=== PATIENT | male | born 1930 | race Caucasian/White ===

== ENCOUNTER 2018-11-07 10:48 | Day surgery (SDC) | payer MEDICARE, BC ==
[2018-11-07] MEDS: Lactated Ringers 1,000 ML IV SCH (11:48)
[2018-11-07] MEDS ORDERED: Propofol 200 MG/20 ML SDV ONE (12:15)
[2018-11-07] MEDS ORDERED: fentaNYL 100 MCG/2 ML SDV ONE (12:15)
--- NOTE | 2018-11-07 13:30 | OR ---
PREOPERATIVE DIAGNOSIS: Upper gastrointestinal bleed. POSTOPERATIVE DIAGNOSES: 1. Significant antral ulcers without hemorrhage. 2. Mild gastroesophageal reflux disease. PROCEDURE PROPOSED: Upper gastrointestinal panendoscopy with antral biopsies. PROCEDURE DONE: Upper gastrointestinal panendoscopy with antral biopsies. INDICATION: This is an 88-year-old gentleman, who recently had some black stools for 3 days and now has cleared up, and he was referred for urgent EGD. TECHNIQUE: The patient brought to the endoscopy suite, placed in left lateral decubitus position. He was sedated per PROOFREADER with propofol. The flexible video gastroscope was then passed transorally and under visualization advanced well into the duodenum. The duodenum and duodenal bulb were unremarkable. The prepyloric antral region did reveal 1 significant ulcer about a centimeter in size. He had a couple of smaller ulcerations in the vicinity with some surrounding mucosal inflammation. There were no signs of any heaped up margins or worrisome findings indicating cancer, but I did do several periulcer biopsies and also a couple of biopsies for H. pylori. The GE junction did not reveal any significant hiatal hernia, but he also had some evidence of some very mild GERD, grade 1, without stenosis or Schatzki's ring, and the remainder of esophagus was normal. The scope was then withdrawn, and the patient tolerated the procedure well. FINAL IMPRESSION: 1. Prepyloric antral ulcers, nonbleeding, biopsies taken. 2. Mild gastroesophageal reflux disease. PLAN: He just got started on Protonix yesterday, and he should take that for at least 2 months on a daily basis. He needs to avoid caffeine, alcohol, nicotine, and follow up with his PCP as needed. SCM: 11/07/2018 13:08:45 MODL: 11/07/2018 13:24:18 /[id number]
== END 2018-11-07 14:30 | disposition home or self-care (01) ==
LOC: VM.SDS 10:48
PROVIDERS: ATTEND Surgery
DX: K29.51 Unspecified chronic gastritis with bleeding (principal); K25.4 Chronic or unspecified gastric ulcer with hemorrhage; K25.9 Gastric ulcer, unspecified as acute or chronic, without hemorrhage or perforation; K21.9 Gastro-esophageal reflux disease without esophagitis; B96.81 Helicobacter pylori [H. pylori] as the cause of diseases classified elsewhere; I10 Essential (primary) hypertension; E78.00 Pure hypercholesterolemia, unspecified; E78.5 Hyperlipidemia, unspecified; M81.0 Age-related osteoporosis without current pathological fracture; M19.90 Unspecified osteoarthritis, unspecified site; N40.0 Benign prostatic hyperplasia without lower urinary tract symptoms; Z79.899 Other long term (current) drug therapy; Z79.82 Long term (current) use of aspirin
CPT/HCPCS: 00731; 43239; 88305; 88342; J2704; J3010; J7120

== ENCOUNTER 2018-12-23 15:31 | Observation (INO) | payer MEDICARE, BC ==
[2018-12-23] MEDS ORDERED: Sodium Chloride 0.9% 10 ML Syringe FLUSH PRN (15:56)
[2018-12-23] MEDS ORDERED: Lactated Ringers 1,000 ML IV SCH ×2 (16:00→18:45)
--- NOTE | 2018-12-23 16:32 | EDM.PDOC ---
ED HPI GENERAL MEDICAL PROBLEM - General Chief Complaint: General Stated Complaint: feels "dazed" Time Seen by Provider: 12/23/18 15:54 Source of Information: Reports: Patient, Family History Limitations: Reports: No Limitations - History of Present Illness INITIAL COMMENTS - FREE TEXT/NARRATIVE: Please use ED chart for admission H and P Patient and his report him feeling somewhat dazed or dizzy with new onset weakness that is generalized in nature. He is having some left sided leg spasms. He reports he does have these already, but today they are worse. He does garden outside and was outside yesterday. Quite warm and humid yesterday. Patient reports 2-3 glasses of water daily. Glasses are 8-12 oz in size. Does also drink soda. No coffee. Regular bowel movements. He reports an ulcer found on EGD 2 weeks ago that has resolved. Symptoms included blood in his stools. Denies blood in stools at this time. He denies chest pain, headache, SOB, change in LOC, no abdominal pain. Regular voiding habits. No blood in urine. Does have BPH. No nausea or vomiting. He denies prior [place] or stroke. No copd, asthma, clotting/hematology problems. Denies prior cancer. No unilateral weakness, speech, or swallowing difficulty. Onset: Today, Sudden Duration: Getting Worse Location: Reports: Generalized Severity: Moderate - Related Data Allergies Allergy/AdvReac Type Severity Reaction Status Date / Time No Known Allergies Allergy Verified 12/23/18 16:09 Home Meds: Home Meds Alendronate Sodium [Fosamax] 70 mg PO WEEKLY 11/05/18 [History] Aspirin 325 mg PO DAILY 11/05/18 [History] Ca/D3/Mag#11/Zinc/Training Director/Zhou/Bor [Caltrate Plus Tablet] 1 each PO BID 11/05/18 [ History] Doxazosin [Cardura] 1 tab PO DAILY 11/05/18 [History] [place]-3 Fatty Acids/Fish Oil [Fish Oil 1,000 mg Softgel] 1 each PO DAILY [History] Verapamil [Calan SR] 1 tab PO DAILY 11/05/18 [History] Pantoprazole Sodium [Protonix] 20 mg DAILY 12/23/18 [History] Past Medical History HEENT History: Reports: Cataract, Retinal Detachment Cardiovascular History: Reports: High Cholesterol, Hypertension Gastrointestinal History: Reports: GERD, GI Bleed Other Gastrointestinal History: RECENT UPPER GI BLEED Genitourinary History: Reports: BPH Other Genitourinary History: Eleavated PSA Musculoskeletal History: Reports: Arthritis, Osteoporosis, Other (See Below) Other Musculoskeletal History: Closed compression FX of 1St lumbar vertebra. Arthritis of left knee Neurological History: Reports: Migraines - Past Surgical History HEENT Surgical History: Reports: Cataract Surgery Cardiovascular Surgical History: Reports: None Musculoskeletal Surgical History: Reports: Carpal Tunnel ED ROS GENERAL - Review of Systems Review Of Systems: See Below Constitutional: Reports: No Symptoms HEENT: Reports: No Symptoms Respiratory: Reports: No Symptoms Cardiovascular: Reports: No Symptoms Endocrine: Reports: No Symptoms GI/Abdominal: Reports: No Symptoms : Reports: No Symptoms Musculoskeletal: Reports: No Symptoms Skin: Reports: No Symptoms Neurological: Reports: Dizziness, Weakness, Other (states he feels "dazed") Psychiatric: Reports: No Symptoms Hematologic/Lymphatic: Reports: No Symptoms Immunologic: Reports: No Symptoms ED EXAM, GENERAL - Physical Exam Exam: See Below Exam Limited By: No Limitations General Appearance: Alert, WD/WN, No Apparent Distress Eye Exam: Bilateral Eye: EOMI, Normal Inspection, PERRL Ears: Normal TMs Nose: Normal Inspection, Normal Mucosa, No Blood Throat/Mouth: Normal Inspection, Normal Lips, Normal Teeth, Normal Gums, Normal Oropharynx, Normal Voice, No Airway Compromise Head: Atraumatic, Normocephalic Neck: Normal Inspection, Supple, Non-Tender, Full Range of Motion Respiratory/Chest: No Respiratory Distress, Lungs Clear, Normal Breath Sounds, No Accessory Muscle Use, Chest Non-Tender Cardiovascular: Normal Peripheral Pulses, Regular Rate, Rhythm, No Edema, No Gallop, No JVD, No Murmur, No Rub Peripheral Pulses: 2+: Posterior Tibial (L), Posterior Tibial (R), Dorsalis Pedis (L), Dorsalis Pedis (R) GI/Abdominal: Normal Bowel Sounds, Soft, Non-Tender, No Organomegaly, No Distention, No Abnormal Bruit, No Mass Back Exam: Normal Inspection, Full Range of Motion, NT Extremities: Normal Inspection, Normal Range of Motion, Non-Tender, Normal Capillary Refill, No Pedal Edema Neurological: Alert, Oriented, CN II-XII Intact, Normal Cognition, Normal Gait, Normal Reflexes, No Motor/Sensory Deficits Psychiatric: Normal Affect, Normal Mood Skin Exam: Warm, Dry, Intact, Normal Color, No Rash Lymphatic: No Adenopathy Course - Vital Signs Last Recorded V/S: Last Vital Signs Temp 36.2 C 12/23/18 15:31 Pulse 61 12/23/18 15:31 Resp 16 12/23/18 15:31 BP 155/63 H 12/23/18 15:31 Pulse Ox 95 12/23/18 15:31 - Orders/Labs/Meds Orders: Active Orders 24 hr Category Date Time Status Lactated Ringers [Ringers, Lactated] 1,000 ml Med 12/23/18 16:00 Active IV ASDIRECTED Sodium Chloride 0.9% [Saline Flush] Med 12/23/18 15:56 Active 10 ml FLUSH ASDIRECTED PRN Saline Lock Insert [OM.PC] Routine Oth 12/23/18 15:56 Ordered Medication Orders Lactated Ringer's (Ringers, Lactated) 1,000 mls @ 999 mls/hr IV ASDIRECTED [facility] Last Admin: 12/23/18 16:25 Dose: 999 mls/hr Sodium Chloride (Saline Flush) 10 ml FLUSH ASDIRECTED PRN PRN Reason: Keep Vein Open Labs: Laboratory Tests 12/23/18 12/23/18 12/23/18 Range/Units 16:05 16:05 16:05 WBC 5.2 (4.0-10.0) x10^3/uL RBC 3.46 L (4.5-6.0) x10^6/uL Hgb 10.9 L (14.0-18.0) g/dL Hct 32.9 L (40.0-52.0) % MCV 95.1 H (78.0-93.0) fL MCH 31.5 (26.0-32.0) pg MCHC 33.1 (32.0-36.0) g/dL RDW Coeff of Justin 12.7 (10.0-15.0) % Plt Count 190 (130-400) x10^3/uL Neut % (Auto) 52.2 (50.0-80.0) % Lymph % (Auto) 31.9 (25.0-50.0) % [place] % (Auto) 13.8 H (2.0-11.0) % Eos % (Auto) 1.9 (0.0-4.0) % Baso % (Auto) 0.2 (0.2-1.2) % PT 10.5 (10.0-12.8) SEC INR 0.9 L (2.0-3.5) Sodium 144 (136-145) mmol/L Potassium 4.1 (3.5-5.1) mmol/L Chloride 108 H (98-107) mmol/L Carbon Dioxide 25 (21-32) mmol/L Anion Gap 15.1 (10-20) mmol/L BUN 21 H (7-18) mg/dL Creatinine 1.1 (0.70-1.30) mg/dL Est Cr Clr Drug Dosing TNP Estimated GFR (MDRD) > 60 Glucose 114 H (74-106) mg/dL Lactic Acid (0.4-2.0) mmol/L Calcium 8.8 (8.5-10.1) mg/dL Corrected Calcium 9.28 (8.5-10.1) mg/dL Magnesium 2.1 (1.8-2.4) mg/dL Total Bilirubin 0.4 (0.2-1.0) mg/dL AST 12 L (15-37) U/L ALT 15 L (16-63) U/L Alkaline Phosphatase 77 (46-116) U/L Troponin I < 0.017 (<=0.056) ng/mL C-Reactive Protein < 0.2 (<=0.9) mg/dL NT-Pro-B Natriuret Pep 391 (<=450) pg/mL Total Protein 6.7 (6.4-8.2) g/dL Albumin 3.4 (3.4-5.0) g/dL Globulin 3.3 Albumin/Globulin Ratio 1.03 Amylase 55 (25-115) U/L TSH, Ultra Sensitive 1.462 (0.358-3.74) uIU/mL Urine Color (YELLOW) Urine Appearance (CLEAR) Urine pH (5.0-8.0) Ur Specific [place] Urine Protein (NEGATIVE) mg/dL Urine Glucose (UA) (NEGATIVE) mg/dL Urine Ketones (NEGATIVE) mg/dL Urine Occult Blood (NEGATIVE) Urine Nitrite (NEGATIVE) Urine Bilirubin (NEGATIVE) Urine Urobilinogen (0.2) EU/dL Ur Leukocyte Esterase (NEGATIVE) Urine RBC (NOT SEEN) /HPF Urine WBC (NOT SEEN) /HPF Ur Squamous Epith Cells (NEGATIVE) /HPF Amorphous Sediment Urine Bacteria (NEGATIVE) /HPF Urine Mucus (NEGATIVE) /LPF 12/23/18 12/23/18 Range/Units 16:05 16:50 WBC (4.0-10.0) x10^3/uL RBC (4.5-6.0) x10^6/uL Hgb (14.0-18.0) g/dL Hct (40.0-52.0) % MCV (78.0-93.0) fL MCH (26.0-32.0) pg MCHC (32.0-36.0) g/dL RDW Coeff of Justin (10.0-15.0) % Plt Count (130-400) x10^3/uL Neut % (Auto) (50.0-80.0) % Lymph % (Auto) (25.0-50.0) % [place] % (Auto) (2.0-11.0) % Eos % (Auto) (0.0-4.0) % Baso % (Auto) (0.2-1.2) % PT (10.0-12.8) SEC INR (2.0-3.5) Sodium (136-145) mmol/L Potassium (3.5-5.1) mmol/L Chloride (98-107) mmol/L Carbon Dioxide (21-32) mmol/L Anion Gap (10-20) mmol/L BUN (7-18) mg/dL Creatinine (0.70-1.30) mg/dL Est Cr Clr Drug Dosing Estimated GFR (MDRD) Glucose (74-106) mg/dL Lactic Acid 1.0 (0.4-2.0) mmol/L Calcium (8.5-10.1) mg/dL Corrected Calcium (8.5-10.1) mg/dL Magnesium (1.8-2.4) mg/dL Total Bilirubin (0.2-1.0) mg/dL AST (15-37) U/L ALT (16-63) U/L Alkaline Phosphatase (46-116) U/L Troponin I (<=0.056) ng/mL C-Reactive Protein (<=0.9) mg/dL NT-Pro-B Natriuret Pep (<=450) pg/mL Total Protein (6.4-8.2) g/dL Albumin (3.4-5.0) g/dL Globulin Albumin/Globulin Ratio Amylase (25-115) U/L TSH, Ultra Sensitive (0.358-3.74) uIU/mL Urine Color Yellow (YELLOW) Urine Appearance Slightly cloudy H (CLEAR) Urine pH 6.0 (5.0-8.0) Ur Specific [place] 1.025 Urine Protein Negative (NEGATIVE) mg/dL Urine Glucose (UA) Negative (NEGATIVE) mg/dL Urine Ketones Negative (NEGATIVE) mg/dL Urine Occult Blood Negative (NEGATIVE) Urine Nitrite Negative (NEGATIVE) Urine Bilirubin Negative (NEGATIVE) Urine Urobilinogen 0.2 (0.2) EU/dL Ur Leukocyte Esterase Negative (NEGATIVE) Urine RBC 0-5 (NOT SEEN) /HPF Urine WBC 0-5 (NOT SEEN) /HPF Ur Squamous Epith Cells Rare (NEGATIVE) /HPF Amorphous Sediment Rare Urine Bacteria Rare (NEGATIVE) /HPF Urine Mucus Few H (NEGATIVE) /LPF Meds: Medications Generic Name Dose Route Start Last Admin Trade Name Freq PRN Reason Stop Dose Admin Lactated Ringer's 1,000 mls @ 999 mls/hr 12/23/18 16:00 12/23/18 16:25 Ringers, Lactated IV 999 mls/hr ASDIRECTED [facility]RISTIAN Administration Sodium Chloride 10 ml 12/23/18 15:56 Saline Flush FLUSH ASDIRECTED PRN Keep Vein Open - Radiology Interpretation Free Text/Narrative:: CT head shows 14mm subdural hygroma resulting in 6 mm right sift of septum pellucidum Chest x-ray negative Departure - Departure Time of Disposition: 18:10 Disposition: Refer to Observation Condition: Good Clinical Impression: Nontraumatic subdural hygroma - Discharge Information *PRESCRIPTION DRUG MONITORING PROGRAM REVIEWED*: Not Applicable *COPY OF PRESCRIPTION DRUG MONITORING REPORT IN PATIENT NEREIDA: Not Applicable ED Communication - ED Communication Date/Time Date: 12/23/18 Time Called: 17:45 - Discussed Case With (1) Discussed Case With (1): Other (Visited with Dr. Nuñez from [facility]. Will admit observation, repeat CT in AM.) - Problem List & Annotations (1) Nontraumatic subdural hygroma SNOMED Code(s): 270399108 Code(s): G96.0 - CEREBROSPINAL FLUID LEAK Status: Acute Priority: Low Current Visit: Yes - Problem List Review Problem List Initiated/Reviewed/Updated: Yes - My Orders Last 24 Hours: My Active Orders 12/23/18 15:56 Sodium Chloride 0.9% [Saline Flush] 10 ml FLUSH ASDIRECTED PRN Saline Lock Insert [OM.PC] Routine 12/23/18 16:00 Lactated Ringers [Ringers, Lactated] 1,000 ml IV ASDIRECTED - Assessment/Plan Last 24 Hours: My Active Orders 12/23/18 15:56 Sodium Chloride 0.9% [Saline Flush] 10 ml FLUSH ASDIRECTED PRN Saline Lock Insert [OM.PC] Routine 12/23/18 16:00 Lactated Ringers [Ringers, Lactated] 1,000 ml IV ASDIRECTED Assessment:: left sided subdural hygroma Plan: Plan 1. Admit to observation 2. Repeat CT head in AM. If stable, discharge, transfer to [facility] if enlarging or new focal deficits arise. 3. Begin triple therapy for H. Pylori with amoxicillin, clarithromycin, and PPI 4. Gentle hydration
--- NOTE | 2018-12-23 17:04 | CR ---
[id number] RAD/RAD Chest PA or AP 1V EXAM: RAD Chest PA or AP 1V INDICATION: TIA SYMPTOMS. COMPARISON: None. DISCUSSION: Cardiomediastinal silhouette is normal in size and contour. No infiltrate, effusion, pneumothorax, or edema. IMPRESSION: No acute findings in the chest. Ming Michaud MD 12/23/18 [id number] Thank you for allowing us to participate in the care of your patient.
[2018-12-23 17:08] LABS: CHLORIDE,CL 108 mmol/L (98-107); SODIUM,NA 144 mmol/L (136-145)
--- NOTE | 2018-12-23 17:11 | CT ---
[id number] CT/CT Head WO IV Exam: CT Head WO IV Indication:TIA SYMPTOMS. Comparison: MRI from 2008. Discussion: Hypodense subdural fluid collection over majority of the left cerebral hemisphere measuring up to 14 mm in diameter. Density of collection suggests a subacute to chronic duration. No evidence of acute hemorrhage into the collection. There is slight mass effect at the septum pellucidum resulting in rightward shift of approximately [address] evidence of acute intracranial ischemia or hemorrhage. 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 Intracranial atherosclerosis. No calvarial fracture or scalp hematoma. Impression: 14 mm left subdural hygroma resulting in 6 mm of rightward shift of septum pellucidum. 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 Results relayed to Dr. Day at time of dictation. Ming Michaud MD 12/23/18 [id number] Thank you for allowing us to participate in the care of your patient.
[2018-12-23 17:17] LABS: ANION GAP 15.1 mmol/L (10-20)
[2018-12-23] MEDS ORDERED: Ondansetron 4 MG Tab.DIS PO PRN (18:27)
[2018-12-23] MEDS ORDERED: Amoxicillin 500 MG Cap PO ONE (18:35)
[2018-12-23] MEDS: Amoxicillin 500 MG Cap PO SCH (19:42)
[2018-12-23] MEDS: Calcium Carbonate/Vitamin D3 1250 MG-200 Unit Tab PO SCH (19:42)
[2018-12-24] MEDS: Verapamil 240 MG Tab.ER PO SCH ×2 (06:46→07:58)
[2018-12-24] MEDS ORDERED: Omeprazole 20 MG Cap.CR PO SCH (07:00)
[2018-12-24] MEDS ORDERED: Pantoprazole 40 MG Tab.CR PO SCH (07:00)
[2018-12-24] MEDS: Amoxicillin 500 MG Cap PO SCH (07:46)
[2018-12-24] MEDS: Calcium Carbonate/Vitamin D3 1250 MG-200 Unit Tab PO SCH (07:48)
[2018-12-24] MEDS ORDERED: Fish Oil/Omega-3 Fatty Acids 1 Gm Cap PO SCH ×2 (08:00→20:00)
[2018-12-24] MEDS ORDERED: Doxazosin 4 MG Tab PO SCH ×2 (08:00→20:00)
--- NOTE | 2018-12-24 08:34 | CT ---
[id number] CT/CT Head WO IV Exam: CT Head WO IV Indication:SUBDURAL HYGROMA Comparison: December 23, 2018. Discussion: Hypodense subdural fluid collection over majority of the left cerebral hemisphere measuring up to 14 mm in diameter is not changed when compared to the prior study. Density of collection suggests a subacute to chronic duration. No evidence of acute hemorrhage into the collection. There is slight mass effect at the septum pellucidum resulting in rightward shift of approximately 6 mm. Impression: Stable 14 mm left subdural hygroma/hematoma resulting in 6 mm of rightward shift of septum pellucidum. Jose Elias Jesus DO 12/24/18 0832 Thank you for allowing us to participate in the care of your patient.
--- NOTE | 2018-12-25 07:53 | PCM.DCSUM1 ---
Discharge Summary - Hospital Course Free Text/Narrative:: Pt. was admitted observation overnight after it was found that the patient had a subdural bleed. Pt. presented to ER with fatigue and some mild vertigo. He underwent CT scan and the bleeding was found. Neurosurgery advised admission and observation with repeat CT which was performed and did not reveal any change. Pt. states that he does feel better this AM. Denies any continued lightheadedness. No fever or chills. Appetite has been normal. No nausea or vomiting. Denies any headache. Pt. is requesting discharge from hospital. Diagnosis: Stroke: No - Discharge Data Discharge Date: 12/24/18 Discharge Disposition: Home, Self-Care 01 Condition: Good - Discharge Diagnosis/Problem(s) (1) Nontraumatic subdural hygroma SNOMED Code(s): 739056870 ICD Code: G96.0 - CEREBROSPINAL FLUID LEAK Status: Acute Priority: Low (2) Weakness SNOMED Code(s): 91537073 ICD Code: R53.1 - WEAKNESS Status: Acute (3) H. pylori infection SNOMED Code(s): 852730266 ICD Code: A04.8 - OTHER SPECIFIED BACTERIAL INTESTINAL INFECTIONS Status: Acute - Patient Summary/Data Consults: Consultations 12/23/18 18:36 Consult to Physical Therapy [PT Evaluation and Treatment] [CONS] Routine - Patient Instructions Diet: Usual Diet as Tolerated Activity: Bedrest, May Use Bathroom, Rest and Relax Today Showering/Bathing: May Shower - Discharge Plan *PRESCRIPTION DRUG MONITORING PROGRAM REVIEWED*: Not Applicable *COPY OF PRESCRIPTION DRUG MONITORING REPORT IN PATIENT NEREIDA: Not Applicable Prescriptions/Med Rec: Clarithromycin [Biaxin] 500 mg PO BID 14 Days tablet Home Medications: Home Meds Alendronate Sodium [Fosamax] 70 mg PO WEEKLY 11/05/18 [History] Aspirin 325 mg PO DAILY 11/05/18 [History] Ca/D3/Mag#11/Zinc/Caponizer/Zhou/Bor [Caltrate Plus Tablet] 1 each PO BID 11/05/18 [ History] Doxazosin [Cardura] 1 tab PO DAILY 11/05/18 [History] [place]-3 Fatty Acids/Fish Oil [Fish Oil 1,000 mg Softgel] 1 each PO DAILY [History] Verapamil [Calan SR] 1 tab PO DAILY 11/05/18 [History] Clarithromycin [Biaxin] 500 mg PO BID 14 Days tablet 12/23/18 [Rx] Pantoprazole Sodium [Protonix] 20 mg DAILY 12/23/18 [History] Forms: ED Department Discharge Referrals: Oj Ruiz MD [Primary Care Provider] - - Discharge Summary/Plan Comment DC Time >30 min.: Yes Discharge Summary/Plan Comment: Pt. was discharged. He has a history of H. Pylori which was not treated. Will start the patient on clarithromycin and amoxicillin for 14 days. Follow-up in clinic in 10-14 days, sooner if headache, numbness/tingling in extremities or face, troubles walking or speaking. - General Info Date of Service: 12/24/18 Functional Status: Reports: Pain Controlled, Tolerating Diet, Ambulating, Urinating - Review of Systems General: Reports: No Symptoms HEENT: Reports: No Symptoms Pulmonary: Reports: No Symptoms Cardiovascular: Reports: No Symptoms Gastrointestinal: Reports: No Symptoms Genitourinary: Reports: No Symptoms Musculoskeletal: Reports: No Symptoms Skin: Reports: No Symptoms Neurological: Reports: Other (see HPI) Psychiatric: Reports: No Symptoms - Patient Data Vitals - Most Recent: Last Vital Signs Temp 36.7 C 12/24/18 06:35 Pulse 57 L 12/24/18 06:35 Resp 18 12/24/18 06:35 BP 196/79 H 12/24/18 06:35 Pulse Ox 99 12/24/18 06:35 Weight - Most Recent: 77.167 kg Med Orders - Current: Current Medications Discontinued Medications Amoxicillin (Amoxil) 1,000 mg PO BID ONE Stop: 12/23/18 18:36 Last Admin: 12/23/18 18:45 Dose: Not Given Amoxicillin (Amoxil) 1,000 mg PO BID [facility] Last Admin: 12/24/18 07:46 Dose: 1,000 mg Calcium Carbonate (Calcium Carbonate/Vitamin D 1250 Mg-200 Unit) 1 tab PO BID [facility] Last Admin: 12/24/18 07:48 Dose: Not Given Clarithromycin (Biaxin) 500 mg PO BID [facility] Last Admin: 12/24/18 07:46 Dose: 500 mg Doxazosin Mesylate (Cardura) 4 mg PO DAILY [facility] Last Admin: 12/24/18 07:58 Dose: Not Given Doxazosin Mesylate (Cardura) 4 mg PO BEDTIME [facility] Fish Oil (Fish Oil) 1 gm PO DAILY [facility] Last Admin: 12/24/18 07:44 Dose: Not Given Fish Oil (Fish Oil) 1 gm PO BEDTIME [facility] Lactated Ringer's (Ringers, Lactated) 1,000 mls @ 999 mls/hr IV ASDIRECTED [facility] Last Admin: 12/23/18 16:25 Dose: 999 mls/hr Lactated Ringer's (Ringers, Lactated) 1,000 mls @ 50 mls/hr IV ASDIRECTED [facility] Last Admin: 12/23/18 19:47 Dose: 50 mls/hr Omeprazole (Omeprazole) 20 mg PO ACBREAKFAST [facility] Ondansetron HCl (Zofran Odt) 4 mg PO Q6H PRN PRN Reason: nausea, able to take PO Pantoprazole Sodium (Protonix) 40 mg PO BIDAC [facility] Last Admin: 12/24/18 06:21 Dose: 40 mg Sodium Chloride (Saline Flush) 10 ml FLUSH ASDIRECTED PRN PRN Reason: Keep Vein Open Last Admin: 12/23/18 19:42 Dose: 10 ml Verapamil HCl (Calan Sr) 240 mg PO DAILY [facility] Last Admin: 12/24/18 07:58 Dose: Not Given - Exam General: Reports: Alert, Oriented HEENT: Reports: Pupils Equal, Pupils Reactive, EOMI, Mucous Membr. Moist/[place] Neck: Reports: Supple Lungs: Reports: Clear to Auscultation, Normal Respiratory Effort Cardiovascular: Reports: Regular Rate, Regular Rhythm GI/Abdominal Exam: Soft, Non-Tender, No Organomegaly, No Distention Back Exam: Reports: Normal Inspection, Full Range of Motion Extremities: Normal Inspection, Normal Range of Motion, Non-Tender, No Pedal Edema, Normal Capillary Refill Skin: Reports: Warm, Dry, Intact Wound/Incisions: Reports: Healing Well Neurological: Reports: No New Focal Deficit Psy/Mental Status: Reports: Alert, Normal Affect, Normal Mood *Q Meaningful Use (DIS) - VTE *Q VTE Anticoagulation Contraindications: Med/TX Not Indicated/Need
== END 2018-12-24 10:20 | disposition home or self-care (01) ==
LOC: VM.ED 15:31 → VM.MS 18:00
PROVIDERS: ADMIT Nurse Practitioner Family; ATTEND Nurse Practitioner Family
DX: G96.0 Cerebrospinal fluid leak (principal); A04.8 Other specified bacterial intestinal infections; I10 Essential (primary) hypertension; E78.00 Pure hypercholesterolemia, unspecified; K21.9 Gastro-esophageal reflux disease without esophagitis; N40.0 Benign prostatic hyperplasia without lower urinary tract symptoms; M19.90 Unspecified osteoarthritis, unspecified site; M81.0 Age-related osteoporosis without current pathological fracture; Z79.82 Long term (current) use of aspirin; Z79.899 Other long term (current) drug therapy; K92.1 Melena; K27.9 Peptic ulcer, site unspecified, unspecified as acute or chronic, without hemorrhage or perforation
CPT/HCPCS: 70450; 71045; 80053; 81001; 82150; 83605; 83735; 83880; 84443; 84484; 85025; 85610; 86140; 93005; 96360; 96361; 99217; 99220; 99285; A9270; G0378; J7120

== ENCOUNTER 2019-04-20 11:00 | Emergency (ER) | payer MEDICARE, BC ==
--- NOTE | 2019-04-20 11:11 | EDM.PDOC ---
ED HPI GENERAL MEDICAL PROBLEM - General Time Seen by Provider: 04/20/19 11:11 - History of Present Illness INITIAL COMMENTS - FREE TEXT/NARRATIVE: The patient came in about 11:00. 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 He sat down and drank some pop. He then had a complaint of not being able to see very well but he could not tell if it was the left eye or the right eye and he was vague about whether it was a focusing issue or a field issue at any rate this lasted less than 10 minutes and did quickly resolve. I did review his prior CT scan in December and the patient is maintained on a blood thinner. I did do a CAT scan and lab work and it was deemed negative. I did look at the CT scan and also received the formal report. The patient does not have an appointment with Dr. Zan Zaman but she he will make one for the next couple of weeks. No acute neurological deficits appreciated. I did convey this with the patient and his and they were agreeable with our medical plan. Onset: Today, Sudden Duration: Resolved Prior to Arrival - Related Data Allergies Allergy/AdvReac Type Severity Reaction Status Date / Time No Known Allergies Allergy Verified 04/20/19 11:38 Home Meds: Home Meds Alendronate Sodium [Fosamax] 70 mg PO WEEKLY 11/05/18 [History] Aspirin 325 mg PO DAILY 11/05/18 [History] Ca/D3/Mag#11/Zinc/Supervisor Extrusion/Zhou/Bor [Caltrate Plus Tablet] 1 each PO BID 11/05/18 [ History] Doxazosin [Cardura] 1 tab PO DAILY 11/05/18 [History] Seney-3 Fatty Acids/Fish Oil [Fish Oil 1,000 mg Softgel] 1 each PO TID 11/05/18 [History] Verapamil [Calan SR] 1 tab PO DAILY 11/05/18 [History] Clarithromycin [Biaxin] 500 mg PO BID 14 Days tablet 12/23/18 [Rx] Pantoprazole Sodium [Protonix] 40 mg PO DAILY 12/23/18 [History] Past Medical History HEENT History: Reports: Cataract, Retinal Detachment Other HEENT History: pinguecula. myopia. presbyopia. posterior vitreous detachment Cardiovascular History: Reports: High Cholesterol, Hypertension Gastrointestinal History: Reports: GERD, GI Bleed Other Gastrointestinal History: RECENT UPPER GI BLEED Genitourinary History: Reports: BPH Other Genitourinary History: Eleavated PSA Musculoskeletal History: Reports: Arthritis, Osteoporosis, Other (See Below) Other Musculoskeletal History: Closed compression FX of 1St lumbar vertebra. Arthritis of left knee Neurological History: Reports: Migraines Endocrine/Metabolic History: Reports: Osteoporosis - Past Surgical History HEENT Surgical History: Reports: Cataract Surgery Cardiovascular Surgical History: Reports: None Musculoskeletal Surgical History: Reports: Carpal Tunnel Social & Family History - Family History Family Medical History: Noncontributory - Caffeine Use Caffeine Use: Reports: Coffee ED ROS GENERAL - Review of Systems Review Of Systems: ROS reveals no pertinent complaints other than HPI. ED EXAM, GENERAL - Physical Exam Exam: See Below Exam Limited By: No Limitations General Appearance: Alert, Mild Distress Respiratory/Chest: No Respiratory Distress, Lungs Clear, Normal Breath Sounds, No Accessory Muscle Use, Chest Non-Tender Cardiovascular: Normal Peripheral Pulses, Regular Rate, Rhythm, No Edema, No Gallop, No JVD, No Murmur, No Rub Extremities: Normal Inspection, Normal Range of Motion, Non-Tender, Normal Capillary Refill, No Pedal Edema Neurological: Alert, Oriented, CN II-XII Intact, Normal Cognition, Normal Gait, Normal Reflexes, No Motor/Sensory Deficits Psychiatric: Normal Affect, Normal Mood Skin Exam: Warm, Dry Lymphatic: No Adenopathy (Holter monitor implant) Course - Vital Signs Last Recorded V/S: Last Vital Signs Temp 36.7 C 04/20/19 12:35 Pulse 68 04/20/19 12:35 Resp 12 04/20/19 12:35 BP 117/76 04/20/19 12:35 Pulse Ox 97 04/20/19 12:35 - Orders/Labs/Meds Orders: Active Orders 24 hr Category Date Time Status EKG 12 Lead [EKG Documentation Completion] [RC] STAT Care 04/20/19 11:50 Active Labs: Laboratory Tests 04/20/19 04/20/19 Range/Units 11:35 11:35 WBC 4.7 (4.0-10.0) x10^3/uL RBC 3.87 L (4.5-6.0) x10^6/uL Hgb 12.1 L (14.0-18.0) g/dL Hct 35.9 L (40.0-52.0) % MCV 92.8 (78.0-93.0) fL MCH 31.3 (26.0-32.0) pg MCHC 33.7 (32.0-36.0) g/dL RDW Coeff of Justin 14.2 (10.0-15.0) % Plt Count 172 (130-400) x10^3/uL Neut % (Auto) 53.7 (50.0-80.0) % Lymph % (Auto) 31.5 (25.0-50.0) % [place] % (Auto) 11.8 H (2.0-11.0) % Eos % (Auto) 2.8 (0.0-4.0) % Baso % (Auto) 0.2 (0.2-1.2) % Sodium 142 (69-191) mmol/L Potassium 4.5 (1.5-9.9) mmol/L Chloride 105 (54-184) mmol/L Carbon Dioxide 25 (21-32) mmol/L Anion Gap 16.5 (10-20) mmol/L BUN 21 H (7-18) mg/dL Creatinine 1.1 (0.70-1.30) mg/dL Est Cr Clr Drug Dosing TNP Estimated GFR (MDRD) > 60 Glucose 128 H (74-106) mg/dL Calcium 8.6 (8.5-10.1) mg/dL Corrected Calcium 9.08 (8.5-10.1) mg/dL Magnesium 1.9 (1.8-2.4) mg/dL Total Bilirubin 0.6 (0.2-1.0) mg/dL AST 16 (15-37) U/L ALT 18 (16-63) U/L Alkaline Phosphatase 81 (46-116) U/L Troponin I < 0.017 (<=0.056) ng/mL NT-Pro-B Natriuret Pep 415 (<=450) pg/mL Total Protein 6.9 (6.4-8.2) g/dL Albumin 3.4 (3.4-5.0) g/dL Globulin 3.5 Albumin/Globulin Ratio 0.97 Departure - Departure Time of Disposition: 12:14 Disposition: Home, Self-Care 01 Preliminary Cause of *Q: Cardiac Arrest Condition: Good Clinical Impression: Dizziness Instructions: Near-Syncope, [id number] Referrals: Oj Ruiz MD [Primary Care Provider] - Forms: ED Department Discharge Additional Instructions: Lab work looks good. CT scan looks normal. Continue your current regiment and make a follow-up appointment with your primary. - My Orders Last 24 Hours: My Active Orders 04/20/19 11:50 EKG 12 Lead [EKG Documentation Completion] [RC] STAT - Assessment/Plan Last 24 Hours: My Active Orders 04/20/19 11:50 EKG 12 Lead [EKG Documentation Completion] [RC] STAT
[2019-04-20 12:09] LABS: CHLORIDE,CL 105 mmol/L (54-184); SODIUM,NA 142 mmol/L (69-191)
[2019-04-20 12:12] LABS: ANION GAP 16.5 mmol/L (10-20)
--- NOTE | 2019-04-20 12:13 | CT ---
[id number] CT/CT Head WO IV EXAM: NONCONTRAST HEAD CT INDICATION: VISUAL CHANGE. COMPARISON: December 24, 2018. 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 There is persistent 4 to 5 mm associated rightward midline shift. Moderate chronic small vessel ischemic changes and mild to moderate generalized atrophy are stable. No acute hemorrhage, acute territorial infarct or new extra-axial collection is identified. The orbits and paranasal sinuses are unremarkable. IMPRESSION: 1. 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 2. No new findings. Beltran Colón MD 04/20/19 [id number] Thank you for allowing us to participate in the care of your patient.
== END 2019-04-20 12:41 | disposition home or self-care (01) ==
LOC: VM.ED 11:00
DX: R42 Dizziness and giddiness (principal); I10 Essential (primary) hypertension; E78.5 Hyperlipidemia, unspecified; M81.0 Age-related osteoporosis without current pathological fracture; N40.0 Benign prostatic hyperplasia without lower urinary tract symptoms; K21.9 Gastro-esophageal reflux disease without esophagitis; Z79.899 Other long term (current) drug therapy; Z79.82 Long term (current) use of aspirin
CPT/HCPCS: 36415; 70450; 80053; 83735; 83880; 84484; 85025; 93005; 99284-25; 99284-GF